=== PATIENT | male | born 1985 | race Caucasian/White ===

== ENCOUNTER 2024-06-22 07:12 | Outpatient (REF) | payer OTHER, SELFPAY | END 2024-06-22 07:13 | disposition home or self-care (01) | LOC: HO.HOSX 07:12 | PROVIDERS: Visit Provider Physician Assistant | DX: Z13.89 Encounter for screening for other disorder (principal) ==

== ENCOUNTER 2024-06-24 08:00 | Outpatient (AMB) | payer OTHER, SELFPAY ==
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
[2024-06-24 08:17] VITALS: BMI 25.8
== END 2024-06-24 08:38 | disposition home or self-care (01) ==
LOC: HO.HOS 08:01
PROVIDERS: Visit Provider Physician Assistant
DX: M23.91 Unspecified internal derangement of right knee (principal); Z04.2 Encounter for examination and observation following work accident
CPT/HCPCS: 99203; G2211

== ENCOUNTER → 2024-06-24 08:02 | Outpatient (BNV) | payer OTHER, SELFPAY | PROVIDERS: Visit Provider Radiology Diagnostic Radiology | DX: M23.91 Unspecified internal derangement of right knee (principal) | CPT/HCPCS: 73562 ==

== ENCOUNTER 2024-06-24 08:28 | Outpatient (REF) | payer OTHER, SELFPAY ==
--- NOTE | ~2024-06-24 | XR_ITS ---
EXAMINATION: XR KNEE 3 VIEWS RIGHT HISTORY: M17.11 - Unilateral primary osteoarthritis, right knee COMPARISON: There are no prior studies available for comparison. FINDINGS: Standing AP views of both knees and additional lateral and sunrise patellar views of the right knee are submitted. Osseous mineralization is normal. There is no fracture or dislocation. The joint spaces are preserved. The soft tissues are unremarkable. There is no joint effusion. XR/XR knee RT 3V IMPRESSION: Unremarkable examination of the right knee. Electronically signed by: Julián Dorsey MD 06/24/2024 08:12 AM EDT
== END 2024-06-24 08:29 | disposition home or self-care (01) ==
LOC: HO.HOSX 08:28
PROVIDERS: Visit Provider Physician Assistant
DX: M17.11 Unilateral primary osteoarthritis, right knee (principal); M23.91 Unspecified internal derangement of right knee
CPT/HCPCS: 73562; 99202

== ENCOUNTER → 2024-07-12 19:37 | Outpatient (BNV) | payer OTHER, SELFPAY | PROVIDERS: PCP Nurse Practitioner Family; Visit Provider Radiology Diagnostic Radiology | DX: S83.231A Complex tear of medial meniscus, current injury, right knee, initial encounter (principal); M25.461 Effusion, right knee | CPT/HCPCS: 73721 ==

== ENCOUNTER 2024-07-12 19:47 | Outpatient (REF) | payer OTHER, SELFPAY ==
--- NOTE | ~2024-07-12 | MR_ITS ---
CLINICAL HISTORY: M17.11 - Unilateral primary osteoarthritis, right knee MR right knee without gadolinium Comparison: DX/SR - XR KNEE RT 3V - 06/24/24 08:02 EDT Findings: Complex tear of the medial meniscal posterior body and posterior horn. A meniscal flap is situated near the posterior horn/root junction and displaced toward the intercondylar notch. Edema signal is present within the adjacent meniscocapsular region. The lateral meniscus is intact. Cruciate ligaments are intact. Collateral ligaments are intact. Low-grade thinning of the medial compartment articular cartilage. The lateral and patellofemoral compartment articular cartilage is maintained. Small knee joint effusion. Tiny Jackson's cyst. Patellar retinacula and iliotibial band are intact. Quadriceps, patellar, popliteus, and flexor tendons are intact. IMPRESSION: 1. Medial meniscal complex tear involving the posterior body and posterior horn, with a meniscal flap at the posterior horn/root junction displaced toward the intercondylar notch. Edema signal is present within the adjacent meniscocapsular region, which may be reactive or be related to a meniscocapsular injury. 2. Mild medial compartment chondropathy. 3. Small knee joint effusion and tiny Jackson's cyst. This document has been electronically signed by: Danyel Rothman DO on 07/14/2024 09:52:41
== END 2024-07-12 19:48 | disposition home or self-care (01) ==
LOC: HO.MRI 19:47
PROVIDERS: PCP Nurse Practitioner Family; Visit Provider Physician Assistant
DX: M17.11 Unilateral primary osteoarthritis, right knee (principal)
CPT/HCPCS: 73721

== ENCOUNTER 2024-08-03 15:05 | Outpatient (AMB) | payer OTHER, SELFPAY ==
--- NOTE | 2024-08-03 15:09 | A.OFFVIS_ITS ---
Vital Signs 08/03/24 15:12 Height 5 ft 7 in Weight 165 lb BMI 25.8 Intake Visit Reasons: OV-f/u MRI restults Intake Note: Lio is a 39 year old male who presents today for his MRI review of his right knee s/t work injury, DOI 05/13/24. Patient reports no change in his symptoms since his last visit. Allergies No Known Allergies Allergy (Verified 08/03/24 15:12) Medication List - Last Reconciled 08/03/24 by Nickie Richardson PA-C atorvastatin 40 mg PO DAILY tramadol 50 mg PO Q6H PRN HPI HPI OV-f/u MRI restults: Details: A 39-year-old gentleman returns to the office today for a follow up MRI results right knee. He states he continues to have discomfort in the right knee with activities such as twisting or pivoting. 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 He has full ra nge of motion with crepitus. Medial joint line tenderness. Positive Martin's. Neurovascularly intact. Results Reviewed Results Reviewed: IMPRESSION: 1. Medial meniscal complex tear involving the posterior body and posterior horn, with a meniscal flap at the posterior horn/root junction displaced toward the intercondylar notch. Edema signal is present within the adjacent meniscocapsular region, which may be reactive or be related to a meniscocapsular injury. 2. Mild medial compartment chondropathy. 3. Small knee joint effusion and tiny Jackson's cyst. Assessment & Plan Assessment & Plan (1) Acute meniscal tear of right knee: Code(s): S83.206A - Unspecified tear of unspecified meniscus, current injury, right knee, initial encounter Category: Medical Plan: I discussed the extent of the injury to the patient and options available which include surgical intervention. I explained the procedure in detail along with the length of recovery and rehab course. I explained the risk, benefits and alternatives. Risk including, but not limited to infection, blood clots, bleeding, ongoing pain and stiffness. I answered all their questions and with their understanding they have consented to move forward with right knee arthroscopy with Dr Loyd. The patient will be booked accordingly once [employer] approval is obtained. Coding Level of Care Code Est Pt Level 4 (50991) Complex EM visit Add On G2211 Diagnoses Acute meniscal tear of right knee S83.206A
[2024-08-03 15:12] VITALS: BMI 25.8
--- OUTSIDE RECORDS SUMMARY | 2024-08-03 16:06 | XMS_ITS | Clinical Summary ---
Author Organization [facility] Address [facility] [address] [address] Phone Care Team Providers Care Breaker Hand Name Role Phone Isaiah Meyers MD Primary Care Provider + Social History Tobacco Use Types Packs/Day Years Used Date Smoking Tobacco: Never Assessed Education Answer Date Recorded Are you interested in more education? Not on carmen e 07/26/2022 Are you concerned about learning? Not on file 07/26/2022 No 07/26/2022 No 07/26/2022 Digital Access Answer Date Recorded No 08/23/2022 No 08/23/2022 No 08/23/2022 Reliable internet access at home? Not on file 08/23/2022 Device with a working camera? Not on file Sex and Gender Information Value Date Recorded Sex Assigned at Not on file Gender Identity Not on file Sexual Orientation Not on file Plan of Treatment Health Maintenance Due Date Last Done Comments Adult Td,Tdap Booster 1983 LIPID PANEL 1983 DEPRESSION SCREENING 1995 SMOKING Hx and SMOKELESS TOBACCO SCREENING 1996 HEPATITIS B SCREENING 2001 HEPATITIS C SCREENING 2001 HIV ONE-TIME SCREENING (18-6 5 YEARS) 2001 HEPATITIS B VACCINES (1 of 3 - 19+ 3-dose series) 2002 INFLUENZA VACCINE (#1) 2023 12/21/2019 COVID-19 VACCINE ( - 2023-2 5 season) 2023 05/08/2020, 04/12/2020 HEPATITIS A VACCINES Aged Out No long er eligible based on patient's age to complete this topic HIB VACCINES Aged Out No longer eligi ble based on patient's age to complete this topic MENINGOCOCCAL VACCINES (ACWY) Aged Out No longer eligible based on patient's age to complete this topic PNEUMOCOCCAL VACCINES (0-49 years) Aged Out No longer eligible b ased on patient's age to complete this topic Medical Devices Not on file Care Teams Breaker Hand Relationship Specialty Start Date End Date Isaiah Meyers MD [address] [place] [id number] PCP - General Family Medicine 07/30/20 Additional Source Comments The information contained in this document represents components of the legal health record. It is not the complete legal health record.[facility]
== END 2024-08-03 15:27 | disposition home or self-care (01) ==
LOC: HO.HOS 15:05
PROVIDERS: PCP Nurse Practitioner Family; Visit Provider Physician Assistant
DX: S83.241A Other tear of medial meniscus, current injury, right knee, initial encounter (principal)
CPT/HCPCS: 99214; G2211

== ENCOUNTER → 2024-08-03 15:05 | Outpatient (BNVA) | payer OTHER, SELFPAY | PROVIDERS: PCP Nurse Practitioner Family; Visit Provider Physician Assistant | DX: S83.231A Complex tear of medial meniscus, current injury, right knee, initial encounter (principal) | CPT/HCPCS: 99212 ==

== ENCOUNTER 2024-08-12 11:14 | Outpatient (AMB) | payer OTHER, SELFPAY ==
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
[2024-08-12 11:16] VITALS: BMI 25.8
--- OUTSIDE RECORDS SUMMARY | 2024-08-12 11:38 | XMS_ITS | Clinical Summary ---
Author Organization [facility] Address [facility] [employer] [address] [address] Phone Care Team Providers Care Shed Boss Name Role Phone Isaiah Meyers MD Primary [...] Recorded Sex Assigned at Not on file Legal Sex Male 9:50 AM EDT Gender Identity Not on file Sexual Orientation [...] INFLUENZA VACCINE (#1) 2023 12/21/2019 COVID-19 VACCINE (2023-2 5 season) 2023 05/08/2020, 04/12/2020 HEPATITIS A [...] this topic Medical Devices Not on file Insurance [employer] [facility] [employer] [employer] [facility] [employer] [employer] [facility] [employer] [facility] [place] [id number] [place] [id number] [place] [id number] Care Teams Shed Boss Relationship Specialty Start Date End Date Isaiah Meyers MD [address] [place] [address] [phone] PCP - General Family Medicine 5/3/21 Additional Source Comments The information contained in this document represents components of the legal health record. It is not the complete legal health record.[facility]
== END 2024-08-12 11:36 | disposition home or self-care (01) ==
LOC: HO.HOS 11:15
PROVIDERS: PCP Nurse Practitioner Family; Visit Provider Orthopaedic Surgery
DX: S83.241A Other tear of medial meniscus, current injury, right knee, initial encounter (principal)
CPT/HCPCS: 99214

== ENCOUNTER → 2024-08-12 11:14 | Outpatient (BNVA) | payer OTHER, SELFPAY | PROVIDERS: PCP Nurse Practitioner Family; Visit Provider Orthopaedic Surgery | DX: S83.206A Unspecified tear of unspecified meniscus, current injury, right knee, initial encounter (principal) | CPT/HCPCS: 99212 ==

== ENCOUNTER 2024-09-06 09:48 | Outpatient (AMB) | payer OTHER, SELFPAY ==
[2024-09-06 09:52] VITALS: BMI 25.8
--- NOTE | 2024-09-06 09:52 | MHC.OFFVIS ---
Vital Signs 09/06/24 09:52 Height 5 ft 7 in Weight 165 lb BMI 25.8 Intake Visit Reasons: Pre-Rt Knee 09/21/24 NE Intake Note: Lio is a 39 year old male who presents today for a pre op appointment for his Rt Knee 09/21/24 NE. Patient was given the pain management form to sign. Patient reports that he having trouble with bending and extending his knee. Patient states that daily activities like going up and down the stairs are a big issue. He states that he doesn't take anything for the pain, he just elevates his knee when in pain. Allergies No Known Allergies Allergy (Verified 09/06/24 09:54) HPI HPI Pre-Rt Knee 09/21/24 NE: Details: Mr. Hooper is a 39-year-old male who presents to the office today for his preoperative history and physical examination pending right knee arthroscopy on 09/[address] Loyd. Patient has no known allergies. He has a history of hypertension. 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 Resp Other: No audible wheezing Effort & Inspection: normal respiratory effort Cardio Other: Radial pulse palpable with no rythmic abnormalities Back/Spine/Pelvis Cervical Spine: normal cervical lordosis Skin General skin exam: no rashes or lesions noted Neuro General: no focal motor deficits Extrem Other: Visual inspection: nl Tenderness: medial joint line ROM: 5-130 ; loss of full extension Effusion: none Steinmen's: + Rick's: negative Psych Appearance: grossly normal and well kempt Mental Status: mental status grossly normal Speech and movement: Normal speech and movement present Affect: normal affect Attitude: cooperative Assessment & Plan Assessment & Plan (1) Acute meniscal tear of right knee: Code(s): S83.206A - Unspecified tear of unspecified meniscus, current injury, right knee, initial encounter Category: Medical Plan Mr. Hooper is a 39-year-old male who presents to the office today for his preoperative history and physical examination pending right knee arthroscopy on 09/[address] Loyd. Patient has no known allergies. He has a history of hypertension. Post operative medications were sent to the pharmacy, Hydrocodone, while in the office today. The patient was instructed that he/she should obtain the prescription prior to surgery but should not consume until after the procedure; as these should only be taken for postoperative pain management. Should the patient take these medications before surgery, a refill will not be sent to the pharmacy until their scheduled refill date. hydrocodone-acetaminophen 5-325 mg (Vicodin) PO Q8H PRN, quantity 28 tabs for 7 days I discussed in detail the procedure and what to expect pre and post operatively. We discussed the risks, benefits and alternatives to the surgery as well as the rehabilitation course. The risks; which include, but are not limited to infection, bleeding, nerve injury, ongoing pain, swelling, and stiffness, perioperative risk of injury to bones and soft tissues, and blood clots. I?ve answered all questions and with their understanding they have consented to move forward with right knee arthroscopy with Dr. Loyd. MRI of the right knee 07/12/24 IMPRESSION: 1. Medial meniscal complex tear involving the posterior body and posterior horn, with a meniscal flap at the posterior horn/root junction displaced toward the intercondylar notch. Edema signal is present within the adjacent meniscocapsular region, which may be reactive or be related to a meniscocapsular injury. 2. Mild medial compartment chondropathy. 3. Small knee joint effusion and tiny Jackson's cyst. Coding Level of Care Code Global (65983) Diagnoses Acute meniscal tear of right knee S83.206A
== END 2024-09-06 10:22 | disposition home or self-care (01) ==
LOC: HO.HOS 09:49
PROVIDERS: PCP Nurse Practitioner Family; Visit Provider Physician Assistant
DX: S83.206A Unspecified tear of unspecified meniscus, current injury, right knee, initial encounter (principal)
CPT/HCPCS: 99024

== ENCOUNTER → 2024-09-06 09:48 | Outpatient (BNVA) | payer OTHER, SELFPAY | PROVIDERS: PCP Nurse Practitioner Family; Visit Provider Physician Assistant | DX: Z01.818 Encounter for other preprocedural examination (principal); S83.231A Complex tear of medial meniscus, current injury, right knee, initial encounter; X58.XXXA Exposure to other specified factors, initial encounter; Y93.9 Activity, unspecified; Y92.9 Unspecified place or not applicable; Y99.9 Unspecified external cause status; I10 Essential (primary) hypertension | CPT/HCPCS: 99212 ==

== ENCOUNTER 2024-09-21 05:55 | Day surgery (SDC) | payer OTHER, SELFPAY ==
--- OUTSIDE RECORDS SUMMARY | 2024-08-04 15:07 | XMS_ITS | Clinical Summary ---
Author Organization [facility] Address [facility] [employer] [address] [address] Phone Care Team Providers Care Facilities Supervisor Name Role Phone Isaiah Meyers MD Primary [...] Medical Devices Not on file Care Teams Facilities Supervisor Relationship Specialty Start Date End Date Isaiah Meyers MD [address] [place] [id number] PCP - General Family Medicine 07/30/20 Additional Source Comments The information contained in this document represents components of the legal health record. It is not the complete legal health record.[facility]
[2024-09-19 09:39] VITALS: BMI 25.8
--- NOTE | 2024-09-20 08:11 | HO.ANESPROP2 ---
Documented by User: Amairani Lou NP 09/20/24 08:11 HPI - Anesthesia Eval Consult details Narrative: 39yo M for Right Knee Arthroscopy [facility] Active Problems Active Problems: All Active Problems Acute meniscal tear of right knee (Acute) Internal derangement of right knee (Acute) Past Medical History Medical History (Updated 09/19/24 @ 09:36 by Maria Luz Whitley RN) Back pain DVT (deep venous thrombosis) Elevated cholesterol Surgical History Surgical History History of ankle surgery Hx of rotator cuff surgery Social History Social History Patient Tobacco Use Status: Never used Tobacco Have you been hit, kicked, punched, or otherwise hurt by someone within the past year? 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 Allergies Allergy/AdvReac Type Severity Reaction Status Date / Time No Known Allergies Allergy Verified 09/06/24 09:54 Home Medications ?Medication ?Instructions ?Recorded ?Confirmed ?Last Taken ?Type atorvastatin 40 mg tablet 40 mg PO DAILY 06/24/24 09/21/24 09/21/24 History tramadol 50 mg tablet 50 mg PO Q6H PRN Pain 06/24/24 09/21/24 Unknown History Exam Height,Weight and Vital Signs: Height 5 ft 7 in Weight 74.843 kg Assessment and Plan Assessment Anesthesia Assessment: Chart Reviewed Documented by User: Yara Beal MD 09/21/24 07:14 [facility] Past Medical History Medical History (Updated 09/19/24 @ 09:36 by Maria Luz Whitley RN) Back pain DVT (deep venous thrombosis) Elevated cholesterol Family History Family history of problems with anesthesia: No Surgical History Surgical History History of ankle surgery Hx of rotator cuff surgery History of Problems with Anesthesia: No Social History Social History Patient Tobacco Use Status: Never used Tobacco Have you been hit, kicked, punched, or otherwise hurt by someone within the past year? 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 Allergies Allergy/AdvReac Type Severity Reaction Status Date / Time No Known Allergies Allergy Verified 09/06/24 09:54 Home Medications ?Medication ?Instructions ?Recorded ?Confirmed ?Last Taken ?Type atorvastatin 40 mg tablet 40 mg PO DAILY 06/24/24 09/21/24 09/21/24 History tramadol 50 mg tablet 50 mg PO Q6H PRN Pain 06/24/24 09/21/24 Unknown History Exam Airway Mallampati Class: II (one cap left top later) TM Dist: >3cm Neck ROM: Full Heart: rrr Lungs: cta Assessment and Plan Assessment Anesthesia Assessment: Anesthesia Plan Discussed Final Anesthetic Review Family History of Problems with Anesthesia: No History of Problems with Anesthesia: No NPO: Yes ASA Class: II Final Preanesthetic Review: No Changes in Pt Med Stat, Meds/Allgs Chart Reviewed and Consent Obtained/Reviewed Patient Risk: Low Procedure Risk: Low Anesthetic Plan Anesthetic Plan: GA Disposition: Standard PACU
[2024-09-21] VITALS (7 sets, daily range): BP systolic 94–129; BP diastolic 60–67; PULSE 54–67; RESP 16–20; TEMP 36.1–36.9; O2SAT 94–99; BMI 25.8
[2024-09-21] MEDS: Lactated Ringers 1,000 ML 100 ML IVCONT (06:30)
--- NOTE | 2024-09-21 07:20 | MHC.SHP ---
Pre-Procedural Eval Section A - 24 Hr Update-Section A only Date of Service: 09/21/24 The patient is an INPATIENT: No Changes since office visit: No Cold of Flu in the past 2 weeks, No New Medical Problems, No Changes in Medication and No Patient answered all questions The patient has been examined within 24 hours of the surgical procedure. The History & Physical has been completed within 30 days and I have reviewed it.: Yes Section B - Complete if H&P > 30 days Chief Complaint: Unspecified tear of unspecified meniscus, current Allergies: Allergies Allergy/AdvReac Type Severity Reaction Status Date / Time No Known Allergies Allergy Verified 09/06/24 09:54 Plan I have reviewed the history and physical and performed a pertinent physical examination on my patient. No changes have occurred unless specified. Time Spent With Patient Time: Total time managing care of this patient today ____ minutes.
--- NOTE | 2024-09-21 08:29 | PM.OP ---
Brief Operative Note Date of Service: 09/21/24 Pre-op diagnosis: Right knee MMT Post-op diagnosis: same Procedure: Right knee with partial medial meniscectomy Implants: none Surgeon: Donnell Lody MD Anesthesia: GETA and local Was an Risk Consulting Treasury Director used for this Procedure?: No Estimated blood loss (mL): 5 IV fluids (mL): 250 Pathology: none sent Condition: stable Disposition: PACU
[2024-09-21] MEDS: fentaNYL citrate/PF 100 MCG/2 ML VIAL 50 MCG IVPUSH (08:39)
[2024-09-21] MEDS: oxyCODONE HCl Immed Release 5 MG TABLET PO (08:44)
--- NOTE | 2024-09-22 07:14 | P.OP_ITS ---
Operative Note Operative Note Date of Service: 09/21/24 Narrative: Date of Service: 09/21/24 Pre-op diagnosis: Right knee MMT Post-op diagnosis: same Procedure: Right knee with partial medial meniscectomy Implants: none Surgeon: Donnell Loyd MD Anesthesia: GETA and local Was an Coupon And Bond Collection Clerk used for this Procedure?: No Estimated blood loss (mL): 5 IV fluids (mL): 250 Pathology: none sent Condition: stable Disposition: PACU Procedure in detail: Patient was brought to the operating room placed supine on the arthroscopic table and prepped and draped in standard sterile fashion. A time-out was called to identify proper site proper procedure proper surgeon and IV antibiotics per weight were administered. I began by exsanguinating the limb and insufflating tourniquet to 300 mm Hg. Then made a standard anterolateral stab incision. The knee was insufflated with water and 30 degree arthroscope was placed. There was grade 1 fibrillations of the patella but overall the suprapatellar pouch and the gutters were clean. I descended into the medial compartment where I made my medial portal under direct visualization. There was obvious of complex tear of the posterior horn of the medial meniscus. This was a complex longitudinal tear extending from the body to the root involving the inner 50% of the meniscus. The peripheral attachments were intact as was the root. I used a probe to assess and there was no instability or tearing at the root. There were a superior and inferior flap with complex degenerative tearing within this. I used a combination of a biter and a shaver to remove the nonviable portions of the meniscus. This involved removal of the inner 50% of the meniscus extending from the body to the posterior horn. There were no cartilage changes. The ACL and lateral compartment were pristine. I used limited cautery to stabilize the edges of the meniscus and a probe to once again assess the stability. I was satisfied with the extent of resection and the stability of the remaining meniscus. I then removed all instrumentation and closed the portals with nylon suture. 25 mL of 2% Marcaine with epinephrine was injected into the joint and the surrounding soft tissues. Patient was then placed in sterile dressing extubated brought recovery room stable condition. There were no known complications.
== END 2024-09-21 09:35 | disposition home or self-care (01) ==
LOC: HO.SSS 05:55
PROVIDERS: PCP Nurse Practitioner Family; Visit Provider Orthopaedic Surgery
PROC: (CPT 29870; principal; 2024-09-21 07:30)
DX: S83.231A Complex tear of medial meniscus, current injury, right knee, initial encounter (principal); X58.XXXA Exposure to other specified factors, initial encounter; Y93.9 Activity, unspecified; Y92.9 Unspecified place or not applicable; Y99.9 Unspecified external cause status; I10 Essential (primary) hypertension; E78.5 Hyperlipidemia, unspecified; M54.50 Low back pain, unspecified; Z86.718 Personal history of other venous thrombosis and embolism; Z79.899 Other long term (current) drug therapy; Z98.890 Other specified postprocedural states
CPT/HCPCS: 29881; J0131; J0171; J0690; J1100; J1885; J2003; J2250; J2405; J2704; J2795; J3010

== ENCOUNTER → 2024-09-21 05:55 | Outpatient (BNV) | payer OTHER, SELFPAY | PROVIDERS: PCP Nurse Practitioner Family; Visit Provider Orthopaedic Surgery | DX: S83.231A Complex tear of medial meniscus, current injury, right knee, initial encounter (principal) | CPT/HCPCS: 29881 ==

== ENCOUNTER 2024-09-22 14:33 | Outpatient (REF) | payer OTHER, SELFPAY ==
--- NOTE | ~2024-09-22 | US_ITS ---
EXAMINATION: US TRIPLEX LOWER EXTREMITY, RIGHT CLINICAL INFORMATION: Right leg pain, history of DVT. Postoperative. COMPARISON: None available. TECHNIQUE: Color-flow triplex imaging with spectral analysis and compression Doppler were performed on the right lower extremity. FINDINGS: Respiratory variation, normal compression and augmented flow are noted throughout the right lower extremity. The visualized common femoral vein, superficial femoral vein, profunda femoral vein, popliteal vein and midcalf peroneal and posterior tibial venous segments show no evidence of deep venous thrombosis. There is no Jackson's cyst. US/US venous duplex LE RT IMPRESSION: No evidence of deep venous thrombosis involving the right lower extremity. Electronically signed by: Rick Morales MD 09/22/2024 03:22 PM EDT
== END 2024-09-22 14:34 | disposition home or self-care (01) ==
LOC: HO.US 14:33
PROVIDERS: PCP Nurse Practitioner Family; Visit Provider Physician Assistant
DX: M79.661 Pain in right lower leg (principal); Z98.890 Other specified postprocedural states; Z86.718 Personal history of other venous thrombosis and embolism
CPT/HCPCS: 93971

== ENCOUNTER → 2024-09-22 14:39 | Outpatient (BNV) | payer OTHER, SELFPAY | PROVIDERS: PCP Nurse Practitioner Family; Visit Provider Radiology Diagnostic Radiology | DX: M79.604 Pain in right leg (principal) | CPT/HCPCS: 93971 ==

== ENCOUNTER 2024-09-27 07:53 | Outpatient (AMB) | payer OTHER, SELFPAY ==
--- NOTE | 2024-09-27 08:10 | MHC.OFFVIS ---
Intake Visit Reasons: PO-Rt Knee 09/21/24 NE Intake Note: Lio is a 39 year old male who presents today for a post operative visit status post right knee DOS: 09/22/[address] Donnell Loyd. States he has been icing his knee and has no complaints. Allergies No Known Allergies Allergy (Verified 09/27/24 08:11) HPI HPI PO-Rt Knee 09/21/24 NE: Details: Lio is a 39 year old male who presents today for a post operative visit status post right knee DOS: 09/22/[address] Donnell Loyd. States he has been icing his knee and has no complaints. Patient has still been ambulating with the aid of crutches, as he does still experience some pain when he does not have additional support with ambulation. 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 Review of Systems Const All systems reviewed & are unremarkable except as noted in HPI and below Physical Exam Extrem Other: Patient's right knee normal to inspection No erythema, ecchymosis, edema noted Port sites well approximated and well healing No evidence of infection Patient reports very minimal tenderness to palpation of the port sites on right knee Patient is able to flex the right knee to approximately 90 degrees and extend the right knee fully Distal sensation intact Capillary refill brisk Assessment & Plan Assessment & Plan (1) Status post surgery: Code(s): Z98.890 - Other specified postprocedural states Category: Surgical (2) Acute meniscal tear of right knee: Code(s): S83.206A - Unspecified tear of unspecified meniscus, current injury, right knee, initial encounter Category: Medical Plan 1. Status post right knee arthroscopy and partial meniscectomy DOS 09/21/2024 Patient appears to be recovering well postoperatively Patient is educated about the typical recovery course At this time, PT referral was placed for range of motion, strengthening, gait training of the right knee in the setting of knee arthroscopy with partial meniscectomy Sutures removed and Steri-Strips applied in the office today without issue Patient is advised that over the next week or so he should begin slowly weaning himself off of ambulation with crutches Patient should follow-up in 4-5 weeks for reassessment, sooner with any acute concerns Orders: Orders PT Evaluation and Treatment Today S83.206A - Unspecified tear of unspecified meniscus, current injury, right knee, initial encounter, Z98.890 - Other specified postprocedural states Coding Level of Care Code Global (78886) Diagnoses Status post surgery Z98.890 Acute meniscal tear of right knee S83.206A
== END 2024-09-27 08:18 | disposition home or self-care (01) ==
LOC: HO.HOS 07:54
PROVIDERS: PCP Nurse Practitioner Family
DX: Z47.89 Encounter for other orthopedic aftercare (principal); S83.231D Complex tear of medial meniscus, current injury, right knee, subsequent encounter
CPT/HCPCS: 99024

== ENCOUNTER → 2024-09-27 07:53 | Outpatient (BNVA) | payer OTHER, SELFPAY | PROVIDERS: PCP Nurse Practitioner Family | DX: Z98.890 Other specified postprocedural states (principal); S83.206A Unspecified tear of unspecified meniscus, current injury, right knee, initial encounter | CPT/HCPCS: 99212 ==

== ENCOUNTER 2024-10-25 09:16 | Outpatient (AMB) | payer OTHER, SELFPAY ==
--- NOTE | 2024-10-25 09:24 | MHC.OFFVIS ---
Vital Signs 10/25/24 09:28 Height 5 ft 7 in Weight 165 lb BMI 25.8 Intake Visit Reasons: PO-Rt Knee 09/21/24 NE Intake Note: Lio is a 39 year old male who presents today for a post operative visit status post right knee with partial medial meniscectomy, DOS: 09/21/[address] Donnell Loyd. At her last visit a referral was placed for range of motion, strengthening and gait training of the right knee. Patient reports he has started physical therapy and has an appointment after this visit. He reports his right knee feels painful with ambulation of stairs, prolonged standing and sitting. He expresses stiff when he attempts to bend his knee. He is having some swelling and is unsure if this is due to physical therapy but says icing and elevating helps . Allergies No Known Allergies Allergy (Verified 10/25/24 09:27) HPI HPI PO-Rt Knee 09/21/24 NE: Details: Lio is a 39 year old male who presents today for a post operative visit status post right knee with partial medial meniscectomy, DOS: 09/21/[address] Donnell Loyd. At her last visit a referral was placed for range of motion, strengthening and gait training of the right knee. Patient reports he has started physical therapy and has an appointment after this visit. He reports his right knee feels painful with ambulation of stairs, prolonged standing and sitting. He expresses stiff when he attempts to bend his knee. He is having some swelling and is unsure if this is due to physical therapy but says icing and elevating helps . 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 Review of Systems Const All systems reviewed & are unremarkable except as noted in HPI and below Physical Exam Vital Signs: BMI result Body Mass Index 25.8 Extrem Other: Patient's right knee normal to inspection No erythema, ecchymosis, edema noted Port sites well approximated and well healed No evidence of infection Patient reports very minimal tenderness to palpation of the port sites on right knee Patient is able to flex the right knee to approximately 130 degrees and extend the right knee fully Distal sensation intact Capillary refill brisk Assessment & Plan Assessment & Plan (1) Status post surgery: Code(s): Z98.890 - Other specified postprocedural states Category: Surgical (2) Acute meniscal tear of right knee: Code(s): S83.206A - Unspecified tear of unspecified meniscus, current injury, right knee, initial encounter Category: Medical Plan 1. Status post right knee arthroscopy and partial meniscectomy DOS 09/21/2024 Patient appears to be recovering well postoperatively Patient is educated about the typical recovery course Should continue with physical therapy for range of motion, strengthening, gait training of the right knee in the setting of knee arthroscopy with partial meniscectomy Patient should follow-up in 6 weeks for reassessment, sooner with any acute concerns Coding Level of Care Code Global (61794) Diagnoses Status post surgery Z98.890 Acute meniscal tear of right knee S83.206A
[2024-10-25 09:28] VITALS: BMI 25.8
--- OUTSIDE RECORDS SUMMARY | 2024-10-25 09:43 | XMS_ITS | Clinical Summary ---
Author Organization [facility] Address [address] [place] [id number] Phone Care Team Providers Care Ehr Trainer Name Role Phone Isaiah Meyers MD Primary [...] Hx and SMOKELESS TOBACCO SCREENING 1996 HEPATITIS C SCREENING 2001 HIV ONE-TIME SCREENING (18-6 5 YEARS) 2001 COVID-19 VACCINE (2023-2 5 season) 2023 05/08/2020, 04/12/2020 HEPATITIS A VACCINES Aged Out No long er eligible based on patient's age to complete this topic HIB VACCINES Aged Out No longer eligi ble based on patient's age to complete this topic MENINGOCOCCAL VACCINES (ACWY) Aged Out No longer eligible based on patient's age to complete this topic MENINGOCOCCAL VACCINES (B) Aged Out N o longer eligible based on patient's age to complete this topic PNEUMOCOCCAL VACCINES (0-49 years) Aged Out No longer eligible b ased on patient's age to complete this topic Medical Devices Not on file Insurance [facility] [place] [address] [place] [address] Care Teams Ehr Trainer Relationship Specialty Start Date End Date Isaiah Meyers MD [address] [place] [id number] PCP - General Family Medicine 07/30/20 Additional Source Comments The information contained in this document represents components of the legal health record. It is not the complete legal health record.[facility]
== END 2024-10-25 09:43 | disposition home or self-care (01) ==
LOC: HO.HOS 09:16
PROVIDERS: PCP Nurse Practitioner Family
DX: Z47.89 Encounter for other orthopedic aftercare (principal); S83.241A Other tear of medial meniscus, current injury, right knee, initial encounter
CPT/HCPCS: 99213

== ENCOUNTER → 2024-10-25 09:16 | Outpatient (BNVA) | payer OTHER, SELFPAY | PROVIDERS: PCP Nurse Practitioner Family | DX: M25.561 Pain in right knee (principal); Z98.890 Other specified postprocedural states; S83.206A Unspecified tear of unspecified meniscus, current injury, right knee, initial encounter | CPT/HCPCS: 99212 ==

== ENCOUNTER 2024-12-02 10:00 | Outpatient (RCR) | payer OTHER, SELFPAY ==
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
--- NOTE | 2024-12-20 11:34 | MHC.PT.DC ---
[facility] [place] Office [place] Office [place] Office [address] [phone] F: [phone] F: [phone] F: [phone] F: [phone] Physical Therapy Discharge Report Diagnosis: S/P R knee arthroscopic and partial menisectomy Date of Surgery: 09/21/24 Date of Evaluation: 10/07/24 Date of Discharge: 12/20/24 Treatments to Date: 15 Cancellations to Date: 4 No Shows to Date: 1 Discharge Status: Improved Function Independent with HEP Discharge Summary: Lio attended 15 PT visits and made significant improvements with PT. He no showed his last visit and has not called back in 2 weeks to re-schedule it. He is therefore being d/c from PT. Electronically signed by: Katarzyna Paul PT DPT Please sign and return to therapist. Thank you for your referral.
== END 2024-12-20 11:34 | disposition home or self-care (01) ==
LOC: HO.PT 10:00
PROVIDERS: PCP Nurse Practitioner Family
DX: S83.206D Unspecified tear of unspecified meniscus, current injury, right knee, subsequent encounter (principal); Z98.890 Other specified postprocedural states
CPT/HCPCS: 97110; 97140; 97161; 97530

== ENCOUNTER 2024-12-12 09:45 | Outpatient (AMB) | payer OTHER, SELFPAY ==
[2024-12-12 09:48] VITALS: BMI 25.8
--- NOTE | 2024-12-12 09:48 | MHC.OFFVIS ---
Vital Signs 12/12/24 09:48 Height 5 ft 7 in Weight 165 lb BMI 25.8 Intake Visit Reasons: PO-Rt Knee 09/21/24 NE Intake Note: Lio is a 39 year old male who presents today for a post operative visit status post Right Knee Arthroscopy with Partial Medial Meniscectomy, DOS: 09/21/[address] Loyd. At his last visit he was advised to continue Physical Therapy. Patient reports he completed formal Physical Therapy last week and will be transitioned to a home exercise program. He continues to have pain on the medial aspect of the knee. He notices a limp when walking but feels comfortable to use stais. He would like to ask some questions about a Jackson's Cyst behind his right knee. Allergies No Known Allergies Allergy (Verified 12/12/24 09:51) HPI HPI PO-Rt Knee 09/21/24 NE: Details: Lio is a 39 year old male who presents today for a post operative visit status post Right Knee Arthroscopy with Partial Medial Meniscectomy, DOS: 09/21/[address] Loyd. At his last visit he was advised to continue Physical Therapy. Patient reports he completed formal Physical Therapy last week and will be transitioned to a home exercise program. He continues to have pain on the medial aspect of the knee. He notices a limp when walking over long distances but feels comfortable to use stairs, which was chief complaint at previous visit. Patient states that he still feels he is unable to run effectively. He would like to ask some questions about a Jackson's Cyst behind his right knee. 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 Review of Systems Const All systems reviewed & are unremarkable except as noted in HPI and below Physical Exam Vital Signs: BMI result Body Mass Index 25.8 Extrem Other: Patient's right knee normal to inspection No erythema, ecchymosis, edema noted Port sites well approximated and well healed No evidence of infection Patient reports no tenderness to palpation of the port sites on right knee Patient is able to flex the right knee to approximately 130 degrees and extend the right knee fully Distal sensation intact Capillary refill brisk Assessment & Plan Assessment & Plan (1) Status post surgery: Code(s): Z98.890 - Other specified postprocedural states Category: Surgical (2) Acute meniscal tear of right knee: Code(s): S83.206A - Unspecified tear of unspecified meniscus, current injury, right knee, initial encounter Category: Medical Plan 1. Status post right knee arthroscopy and partial meniscectomy DOS 09/21/2024 Patient appears to be recovering well postoperatively Patient is educated about the typical recovery course Should continue with physical therapy home exercise program for range of motion, strengthening, gait training of the right knee in the setting of knee arthroscopy with partial meniscectomy Patient may begin to gradually increase his activity level as tolerated Out of work until follow-up Patient should follow-up in 6 weeks for reassessment, sooner with any acute concerns, anticipate return to work at that time Coding Level of Care Code Global (89375) Diagnoses Status post surgery Z98.890 Acute meniscal tear of right knee S83.206A
--- OUTSIDE RECORDS SUMMARY | 2024-12-12 11:59 | XMS_ITS | Clinical Summary ---
Author Organization [facility] Address [address] [place] [phone] Phone Care Team Providers Care Import Coordinator Name Role Phone Isaiah Meyers MD Primary [...] HIV ONE-TIME SCREENING (18-6 5 YEARS) 2001 INFLUENZA VACCINE (#1) 2024 12/21/2019 COVID-19 VACCINE (2024-2 6 season) 2024 05/08/2020, 04/12/2020 HEPATITIS A VACCINES Aged Out [...] Devices Not on file Insurance [facility] [place] [address] [place] [address] CATHERINE [id number] Care Teams Import Coordinator Relationship Specialty Start Date End Date Isaiah Meyers MD [address] [place] [address] [id number] PCP - General Family Medicine 07/30/20 Additional Source Comments The information contained in this document represents components of the legal health record. It is not the complete legal health record.[facility]
== END 2024-12-12 10:03 | disposition home or self-care (01) ==
LOC: HO.HOS 09:46
PROVIDERS: PCP Nurse Practitioner Family
DX: Z47.89 Encounter for other orthopedic aftercare (principal); S83.206A Unspecified tear of unspecified meniscus, current injury, right knee, initial encounter
CPT/HCPCS: 99024

== ENCOUNTER → 2024-12-12 09:45 | Outpatient (BNVA) | payer OTHER, SELFPAY | PROVIDERS: PCP Nurse Practitioner Family | DX: M25.561 Pain in right knee (principal); Z98.890 Other specified postprocedural states; S83.206D Unspecified tear of unspecified meniscus, current injury, right knee, subsequent encounter | CPT/HCPCS: 99212 ==

== ENCOUNTER 2025-01-19 08:37 | Outpatient (AMB) | payer OTHER, SELFPAY ==
[2025-01-19 08:39] VITALS: BMI 25.8
--- NOTE | 2025-01-19 08:39 | A.OFFVIS_ITS ---
Vital Signs 01/19/25 08:39 Height 5 ft 7 in Weight 165 lb BMI 25.8 Intake Visit Reasons: OV:Rt Knee 09/21/24 NE, req injection Intake Note: Lio is a 39 year old male who presents today for follow up status post Right Knee Arthroscopy performed on 09/21/[address] Loyd. At his last visit he was advised to increase activity as tolerated and given a work note to be out of work until his scheduled follow up, 02/01/25. Patient complains of slight pain, stiffness, and difficulty with extension and flexion of the knee. Pt is working on the exercises he was doing while in PT. Patient interested in a cortisone injection today. Allergies No Known Allergies Allergy (Verified 01/19/25 08:45) HPI HPI OV:Rt Knee 09/21/24 NE, req injection: Details: Lio is a 39 year old male who presents today for follow up status post Right Knee Arthroscopy performed on 09/21/[address] Loyd. At his last visit he was advised to increase activity as tolerated and given a work note to be out of work until his scheduled follow up, 02/01/25. Patient complains of slight pain, stiffness, and difficulty with extension and flexion of the knee. Patient states that this pain only typically occurs with higher impact exercises that he was given by PT, and states that this resolves with periods of rest. Pt is working on the exercises he was doing while in PT. Patient interested in a cortisone injection today. 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 Review of Systems Const All systems reviewed & are unremarkable except as noted in HPI and below Physical Exam Vital Signs: BMI result Body Mass Index 25.8 Extrem Other: Patient's right knee normal to inspection No erythema, ecchymosis, edema noted Port sites well approximated and well healed No evidence of infection Patient reports no tenderness to palpation of the right knee Patient is able to flex the right knee to approximately 130 degrees and extend the right knee fully Distal sensation intact Capillary refill brisk Assessment & Plan Assessment & Plan (1) Status post surgery: Code(s): Z98.890 - Other specified postprocedural states Category: Surgical (2) Acute meniscal tear of right knee: Code(s): S83.206A - Unspecified tear of unspecified meniscus, current injury, right knee, initial encounter Category: Medical Plan 1. Status post right knee arthroscopy and partial meniscectomy DOS 09/21/2024 Patient appears to be recovering well postoperatively Patient is educated about the typical recovery course Should continue with physical therapy home exercise program for range of motion, strengthening, gait training of the right knee in the setting of knee arthroscopy with partial meniscectomy Patient is prescribed a course of Celebrex for pain management as needed Patient may begin to gradually increase his activity level as tolerated Out of work until follow-up Patient should follow-up in 2-3 weeks for reassessment, sooner with any acute concerns, anticipate return to work at that time Medications: New celecoxib (Celebrex) 200 mg PO BID PRN 60 caps 3RF pain 30 days Coding Level of Care Code Est Pt Level 3 (07131) Diagnoses Status post surgery Z98.890 Acute meniscal tear of right knee S83.206A
--- OUTSIDE RECORDS SUMMARY | 2025-01-19 09:08 | XMS_ITS | Clinical Summary ---
Author Organization [address] [facility] Address [address] [place] [address] Phone Care Team Providers Care Crm Administrator Name Role Phone Isaiah Meyers MD Primary Care Provider [phone]- [phone] Encounters Date Type Department Care Team Description 01/11/2025 Lab Requisition [facility] - Main Lab [address] [facility] [place] [address] Landon Cardenas MD Encounter for sterilization from Last 3 Months Social History Tobacco Use Types Packs/Day Years Used Date Smoking Tobacco: Never Assessed Sex and Gender Information Value Date Recorded Sex Assigned at Not on file Legal Sex Male 4:00 PM EST Gender Identity Not on file Sexual Orientation Not on file Plan of Treatment Health Maintenance Due Date Last Done Comments DTaP,Tdap,and Td Vaccines (1 - Tdap) 2002 Hepatitis B Vaccines (1 of 3 - 19+ 3-dose series) 2002 HPV Vaccines (1 - 3-dose SCD M series) 2010 Cholesterol Screening (Lipid Panel) 02/26/2022 HIV Screening 02/26/2022 Hepatitis C Screening 02/26/2022 Social Influencers of Health Screening 02/26/2022 Depression Screening 03/30/2024 COVID-19 Vaccine ( - 2023-2 5 season) 2024 Influenza Vaccine (#1) 2024 RSV Immunization Adult Patie nts (1 - 1-dose 75+ series) 2058 HIB Vaccines Aged Out No longer eligi ble based on patient's age to complete this topic Hepatitis A Vaccines Aged Out No long er eligible based on patient's age to complete this topic IPV Vaccines Aged Out No longer eligi ble based on patient's age to complete this topic MMR Vaccines Aged Out No longer eligi ble based on patient's age to complete this topic Meningococcal ACWY Vaccine Aged Out N o longer eligible based on patient's age to complete this topic Meningococcal B Vaccine Aged Out No l onger eligible based on patient's age to complete this topic Pneumococcal Vaccine: Pediat rics (0 to 5 Years) and At-Risk Patients (6 to 49 Years) Aged Out No longer eligible b ased on patient's age to complete this topic RSV Immunization Patients Un cassy 20 months Aged Out No longer eligible b ased on patient's age to complete this topic Varicella Vaccines Aged Out No longer eligible based on patient's age to complete this topic Procedures Procedure Name Priority Date/Time Associated Diagnosis Comments TISSUE EXAM Routine 01/06/2025 Encounter for sterilization from Last 3 Months Results * Tissue Exam (01/06/2025) Final Diagnosis A. Vas Deferens, Right: -SEGMENT OF VAS DEFERENS, LUMEN IDENTIFIED B. Vas Deferens, Left: -SEGMENT OF VAS DEFERENS, LUMEN IDENTIFIED 01/12/2025 1:18 PM EDT [facility] at 1318 EDT Clinical Information Z30.2 Encounter for sterilization [id number] 01/12/2025 1:18 PM EDT [facility] Gross Description A. Vas Deferens, Right, : Labeled right vas deferens . Received in formalin is a 0.2 x 0.3 cm rubbery, frost, tubular portion of tissue, with a central pinpoint lumen, which is submitted in toto in one cassette, between sponges, one piece, embed on end. (The luminal aspect is inked red to assist with embedding orientation.) B. Vas Deferens, Left, : Labeled left vas deferens . Received in formalin is a 0.2 x 0.3 cm rubbery, frost, tubular portion of tissue, with a central pinpoint lumen, which is submitted in toto in one cassette, between sponges, one piece, embed on end. (The luminal aspect is inked red to assist with embedding orientation.) /rc 01/12/2025 1:18 PM EDT [facility] Disclaimer Unless otherwise specified, all tissue is 10% NB formalin fixed and paraffin embedded. Technical pathology services provided by [facility] at [address], [place] [address] (CLIA #[id number]/Sherie Alvares MD, Cash Register Servicer) 01/12/2025 1:18 PM EDT [facility] Tissue Structure of left vas deferens / Unknown 01/06/2025 01/11/2025 2:31 PM EDT Tissue specimen (specimen) Structure of left vas deferens / Unknown 01/06/2025 01/11/2025 2:31 PM EDT us Landon Cardenas MD LAB PATHOLOGY ORDERABLES Final R esult [facility] ([facility] [address] [place] [address], from Last 3 Months Insurance [facility] [address] [place] [address] Care Teams Crm Administrator Relationship Specialty Start Date End Date Isaiah Meyers MD [facility] [address] [place] [address] PCP - General Family Medicine 01/11/25
--- OUTSIDE RECORDS SUMMARY | 2025-01-19 09:08 | XMS_ITS | Clinical Summary ---
Author Organization [facility] Address [address] [place] [phone] Phone Care Team Providers Care Trade Facilitator Name Role Phone Isaiah Meyers MD Primary [...] topic Medical Devices Not on file Insurance [facility] [place] [id number] [place] [id number] CATHERINE [id number] Care Teams Trade Facilitator Relationship Specialty Start Date End Date Isaiah Meyers MD [address] [place] [address] [phone] PCP - General Family Medicine 07/30/20 Additional Source Comments The information contained in this document represents components of the legal health record. It is not the complete legal health record.[facility]
--- OUTSIDE RECORDS SUMMARY | 2025-01-19 09:08 | XMS_ITS | Encounter Summary ---
Author Organization [facility] Address [address] [place] [address] Care Team Providers Care Servicing Manager Name Role Phone Isaiah Meyers MD Primary Care Provider +1- [phone] Encounter Details Date Type Department Care Team (Latest Contact Info) Description 01/11/2025 Lab Requisition [facility] - Main Lab [address] [facility] [place] [address] Landon Cardenas MD [address] [place], [place] [phone] Encounter for sterilization Social History Tobacco Use Types Packs/Day Years Used Date Smoking Tobacco: Never Assessed Sex and Gender Information Value Date Recorded Sex Assigned at Not on file Legal Sex Male 4:00 PM EST Gender Identity Not on file Sexual Orientation Not on file documented as of this encounter Plan of Treatment Not on file documented as of this encounter Procedures Procedure Name Priority Date/Time Associated Diagnosis Comments TISSUE EXAM Routine 01/06/2025 Encounter for sterilization documented in this encounter Results * Tissue Exam (01/06/2025) Final Diagnosis A. Vas Deferens, Right: -SEGMENT OF VAS DEFERENS, LUMEN IDENTIFIED B. Vas Deferens, Left: -SEGMENT OF VAS DEFERENS, LUMEN IDENTIFIED 01/12/2025 1:18 PM EDT [facility] ([facility]) [facility] at 1318 EDT Clinical Information Z30.2 Encounter for sterilization [id number] 01/12/2025 1:18 PM EDT [facility] Gross Description A. Vas Deferens, Right, [...] embedding orientation.) /rc 01/12/2025 1:18 PM EDT [facility] Disclaimer Unless otherwise specified, all tissue is 10% NB formalin fixed and paraffin embedded. Technical pathology services provided by [facility] at [address] [place] [address] [address], [place] [address] (CLIA #[id number]/Sherie Alvares MD, Tag Press Operator) 01/12/2025 1:18 PM EDT [facility] Tissue Structure of left vas deferens / Unknown 01/06/2025 01/11/2025 2:31 PM EDT Tissue specimen (specimen) Structure of left vas deferens / Unknown 01/06/2025 01/11/2025 2:31 PM EDT us Landon Cardenas MD LAB PATHOLOGY ORDERABLES Final R esult [facility] [address] [place] [address], documented in this encounter Visit Diagnoses Diagnosis Encounter for sterilization Sterilization documented in this encounter Care Teams Servicing Manager Relationship Specialty Start Date End Date Isaiah Meyers MD [facility] [address] [place] [address] PCP - General Family Medicine 01/11/25 documented as of this encounter
== END 2025-01-19 09:09 | disposition home or self-care (01) ==
LOC: HO.HOS 08:38
PROVIDERS: PCP Nurse Practitioner Family
DX: Z47.89 Encounter for other orthopedic aftercare (principal); S83.241D Other tear of medial meniscus, current injury, right knee, subsequent encounter
CPT/HCPCS: 99213

== ENCOUNTER → 2025-01-19 08:37 | Outpatient (BNVA) | payer OTHER, SELFPAY | PROVIDERS: PCP Nurse Practitioner Family | DX: M25.561 Pain in right knee (principal); Z98.890 Other specified postprocedural states; S83.206D Unspecified tear of unspecified meniscus, current injury, right knee, subsequent encounter | CPT/HCPCS: 99212 ==

== ENCOUNTER 2025-02-20 12:43 | Outpatient (AMB) | payer OTHER, SELFPAY ==
[2025-02-20 13:02] VITALS: BMI 25.8
--- NOTE | 2025-02-20 13:02 | A.OFFVIS_ITS ---
Vital Signs 02/20/25 13:02 Height 5 ft 7 in Weight 165 lb BMI 25.8 Intake Visit Reasons: OV-Rt Knee 09/21/24 NE Intake Note: Lio is a 39 year old male who presents today for follow up status post Right Knee Arthroscopy performed on 09/21/[address] Loyd. At his last visit, 01/19/25, he was advised to continue Physical Therapy, to gradually increase activity as tolerated, and to remain out of work until follow up. Celebrex was sent to his pharmacy to be taken PRN. Today, patient reports the Celebrex gave him good relief. He complains of ongoing right knee pain on the medial aspect of the knee. He would like to discuss his work status today. He is unsure if he can return to work as there is not a light duty option. 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 Allergies No Known Allergies Allergy (Verified 02/20/25 13:04) HPI HPI OV-Rt Knee 09/21/24 NE: Details: Lio is a 39 year old male who presents today for follow up status post Right Knee Arthroscopy performed on 09/21/[address] Loyd. At his last visit, 01/19/25, he was advised to continue Physical Therapy, to gradually increase activity as tolerated, and to remain out of work until follow up. Celebrex was sent to his pharmacy to be taken PRN. Today, patient reports the Celebrex gave him good relief. Patient states that he has been able to increase his activity level and the amount of weight that he is using during exercise, and feels that this is helping him significantly with regards to his recovery. He complains of ongoing right knee pain on the medial aspect of the knee. He would like to discuss his work status today. He is unsure if he can return to work as there is not a light duty option. 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 Review of Systems Const All systems reviewed & are unremarkable except as noted in HPI and below Physical Exam Vital Signs: BMI result Body Mass Index 25.8 Extrem Other: Patient's right knee normal to inspection No erythema, ecchymosis, edema noted Port sites well approximated and well healed No evidence of infection Patient reports minimal tenderness to palpation to the medial joint line of the of the right knee Patient is able to flex the right knee to approximately 130 degrees and extend the right knee fully Distal sensation intact Capillary refill brisk Assessment & Plan Assessment & Plan (1) Status post surgery: Code(s): Z98.890 - Other specified postprocedural states Category: Surgical (2) Acute meniscal tear of right knee: Code(s): S83.206A - Unspecified tear of unspecified meniscus, current injury, right knee, initial encounter Category: Medical Plan 1. Status post right knee arthroscopy and partial meniscectomy DOS 09/21/2024 Patient appears to be recovering well postoperatively Patient is educated about the typical recovery course Should continue with physical therapy home exercise program for range of motion, strengthening, gait training of the right knee in the setting of knee arthroscopy with partial meniscectomy Patient is prescribed a course of Celebrex for pain management as needed at last visit, this is worked well and patient should continue with this if needed Patient may begin to gradually increase his activity level as tolerated Out of work until follow-up Patient should follow-up in 4 weeks weeks for reassessment, sooner with any acute concerns, anticipate return to work at that time Coding Level of Care Code Est Pt Level 3 (22278) Diagnoses Status post surgery Z98.890 Acute meniscal tear of right knee S83.206A
== END 2025-02-20 13:26 | disposition home or self-care (01) ==
LOC: HO.HOS 12:43
PROVIDERS: PCP Nurse Practitioner Family
DX: M25.561 Pain in right knee (principal); Z47.89 Encounter for other orthopedic aftercare
CPT/HCPCS: 99213

== ENCOUNTER → 2025-02-20 12:43 | Outpatient (BNVA) | payer OTHER, SELFPAY | PROVIDERS: PCP Nurse Practitioner Family | DX: Z98.890 Other specified postprocedural states (principal); S83.206D Unspecified tear of unspecified meniscus, current injury, right knee, subsequent encounter | CPT/HCPCS: 99212 ==